=== PATIENT | male | born 1995 | race Caucasian/White ===

== ENCOUNTER → 2020-04-18 | Outpatient (CLI) | payer OTHER | LOC: COL.RAD 08:41 | DX: M25.511 Pain in right shoulder (principal) | CPT/HCPCS: A9585; Q9967 ==

== ENCOUNTER 2023-10-30 10:26 | Emergency (ER) | payer BC ==
[~2023-10-30] VITALS: Ht 188 cm; Wt 150.0 kg
[~2023-10-30 10:26] MED LIST: AMOXICILLIN 8751 TAB PO; FLEXERIL 1010 MG/TAB PO; IBU800 M1 PO; MEDROL 4MG DOSPA4 MG PO
[2023-10-30 10:33] VITALS: TEMP 98.9
[2023-10-30] MEDS ORDERED: Ketorolac 30 MG/ML VIAL IV ONE (11:30)
[2023-10-30] MEDS ORDERED: LORazepam 2 MG/ML 1 ML VIAL IV ONE (11:30)
[2023-10-30 11:31] LABS: BASO # 0.1 K/mm3 (0.0-0.2); BASO % 0.8 % (0.0-2.0); EOS # 0.3 K/mm3 (0.0-0.7); EOS % 2.7 % (0.0-4.0); GRAN # 6.6 K/mm3 (1.4-6.5); HEMATOCRIT 49.8 % (42.0-52.0); HEMOGLOBIN 16.7 g/dl (13.5-18.0); LYMPH # 2.9 K/mm3 (1.2-3.4); LYMPH % 27.6 % (20.0-51.0); MEAN CELL VOLUME 83 fl (80.0-100.0); MEAN CORPUSCULAR HEMOGLOBIN 28 pg (27-31); MEAN CORPUSCULAR HGB CONC 34 g/dl (33.0-37.0); MEAN PLATELET VOLUME 10.4 fl (7.4-10.4); MONO # 0.4 K/mm3 (0.1-0.6); MONO % 4.3 % (1.7-9.3); PLATELET COUNT 284 K/mm3 (130-400); RED BLOOD COUNT 5.99 M/mm3 (4.20-5.60); REDCELL DISTRIBUTION WIDTH-CV 14.1 % (11.5-14.5)
[2023-10-30 11:49] LABS: ERYTHROCYTE SEDIMENTATION RATE 29 mm/hr (0-15)
[2023-10-30 12:02] LABS: C-REACTIVE PROTEIN 0.94 mg/dL (0.00-0.50); CALCIUM 9.8 mg/dL (8.4-10.2); CREATININE, serum 0.85 mg/dL (0.72-1.25); POTASSIUM 4.2 mEq/L (3.5-4.5)
[2023-10-30] MEDS ORDERED: PREDNISONE50 MG PO (12:58)
[2023-10-30 13:23] VITALS: BP 142/93; PULSE 80
== END 2023-10-30 13:26 | disposition home or self-care (01) ==
LOC: COL.ER 10:26
PROVIDERS: Emergency Medicine
DX: M54.42 Lumbago with sciatica, left side (principal)
CPT/HCPCS: J1885; J2060